=== PATIENT | female | born 2005 | race Two or more races ===

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

== ENCOUNTER 2024-01-04 14:05 | Emergency (ER) | payer MEDICAID, OTHER ==
[~2024-01-04] VITALS: Ht 160 cm; Wt 79.6 kg
[~2024-01-04 14:05] MED LIST changes: +ERY05OO OP; +PENI500T2 PO; +PROM1SOL4 PO
[2024-01-04] MEDS ORDERED: PROM1SOL4 PO (17:50)
[2024-01-04 18:08] VITALS: BP 118/64; PULSE 106; RESP 18; TEMP 99.1; O2SAT 97
== END 2024-01-04 18:10 | disposition home or self-care (01) ==
LOC: ER 14:05
DX: J20.9 Acute bronchitis, unspecified (principal)
CPT/HCPCS: 71046